=== PATIENT | male | born 1955 | race Caucasian/White ===

== ENCOUNTER → 2024-12-19 09:29 | Outpatient (REF) | payer OTHER, SELFPAY ==
[2024-12-19 11:18] LABS: C-Reactive Protein < 5.00 mg/L (0.0-10.00)
== END ==
LOC: RAD 09:29
PROVIDERS: ATTENDING PHYSICIAN Orthopaedic Surgery; FAMILY PHYSICIAN Internal Medicine
DX: Z96.641 Presence of right artificial hip joint (principal); M16.12 Unilateral primary osteoarthritis, left hip
CPT/HCPCS: 36415; 78315; 85652; 86140; A9503